=== PATIENT | male | born 1970 | race Caucasian/White ===

== ENCOUNTER 2016-06-05 07:33 | Emergency (ER) | payer SELFPAY ==
[2016-06-05 07:39] VITALS: BP 165/106
[2016-06-05] MEDS ORDERED: Tetan/Diph/Pertus SYR(Tdap)* 0.5 ML SYR(BOOSTRIX) use SYR IM ONE (08:18)
--- NOTE | 2016-06-05 09:29 | ED ---
Laceration/Wound HPI - HPI Summary HPI Summary: Patient arrives to ED after lacerating base of the thumb on the dorsum side approx 30 minutes ago with a table saw. Denies numbness or tingling. Pulses +2 bilaterally. Has not taken anything for pain. 2/10 pain noted. Denies health problems or any medications daily. - History of Current Complaint Stated Complaint: RT HAND LAC Time Seen by Provider: 06/05/16 07:50 Hx Obtained From: Patient Mechanism of Injury: Sharp/Blunt Trauma Onset/Duration: Sudden Onset Aggravating: Movement Alleviating: Compression Timing: Constant Onset Severity: Mild Current Severity: Mild Pain Intensity: 2 Pain Scale Used: 0-10 Numeric Associated Signs & Symptoms: Negative - Allergy/Home Medications Allergies/Adverse Reactions: Allergies Allergy/AdvReac Type Severity Reaction Status Date / Time Penicillins Allergy Itching Verified 06/05/16 07:35 PMH/Surg Hx/FS Hx/Imm Hx Previously Healthy: Yes Endocrine/Hematology History: Denies: Hx Diabetes, Hx Thyroid Disease Cardiovascular History: Reports: Hx Hypertension - ??? Respiratory History: Denies: Hx Asthma, Hx Chronic Obstructive Pulmonary Disease (COPD) GI History: Denies: Hx Ulcer - Surgical History Surgery Procedure, Year, and Place: back surgery Infectious Disease History: No Infectious Disease History: Denies: Hx Clostridium Difficile, Hx Hepatitis, Hx Human Immunodeficiency Virus (HIV), Hx of Known/Suspected MRSA, Hx Shingles, Hx Tuberculosis, Hx Known/ Suspected VRE, Hx Known/Suspected VRSA, History Other Infectious Disease, Traveled Outside the [place] in Last 30 Days - Social History Occupation: Employed Full-time Lives: With Family Alcohol Use: Rare Hx Substance Use: No Substance Use Type: Reports: None Hx Tobacco Use: Yes Smoking Status (MU): Heavy Every Day Tobacco Smoker Type: Cigarettes Review of Systems Constitutional: Negative Cardiovascular: Negative Respiratory: Negative Positive: no symptoms reported, see HPI Musculoskeletal: Negative Positive: Other - 2cm laceration Neurological: Negative Psychological: Normal All Other Systems Reviewed And Are Negative: Yes Physical Exam Triage Information Reviewed: Yes Vital Signs On Initial Exam: Initial Vitals Temp Pulse Resp BP Pulse Ox 97 F 110 20 165/106 98 06/05/16 07:35 06/05/16 07:35 06/05/16 07:35 06/05/16 07:35 06/05/16 07:35 Vital Signs Reviewed: Yes Appearance: Positive: Well-Appearing, Well-Nourished Skin: Positive: Warm, Other - 1.5cm laceration to dorsum of base of thumb. superifical. no depth or width. pulses intact bilaterally. movement in all directions OK. no erythema, warmth or drainage from the area. Head/Face: Positive: Normal Head/Face Inspection Eyes: Positive: SUNSHINE, Conjunctiva Clear Neck: Positive: Supple, No Lymphadenopathy Respiratory/Lung Sounds: Positive: Clear to Auscultation Cardiovascular: Positive: Normal Musculoskeletal: Positive: Normal, Other Neurological: Positive: Other - denies numbness and tingling Psychiatric: Positive: Normal AVPU Assessment: Alert Procedures - Laceration/Wound Repair 1 Location: upper extremity Description: Linear Anesthesia: Local, 1.0% Betadine Prep?: No Laceration/Wound Explored: clean Suture Type: Nylon Number of Sutures: 3 - denies numbness and tingling s/p sutures Layer Closure?: No Sterile Dressing Applied?: No Diagnostics - Vital Signs Vital Signs Temp Pulse Resp BP Pulse Ox 06/05/16 07:35 97 F 110 20 165/106 98 - Laboratory Lab Statement: Any lab studies that have been ordered have been reviewed, and results considered in the medical decision making process. Laceration Repair Course/Dx - Course Course Of Treatment: Laceration to dorsum of base of right thumb. Patient is right hand dominant. irrigated wound. 3 nylon sutures placed. abx ointment applied. gauze wrapped. neurovascular exam s/p suture placement intact. no abx needed. patient tolerated well. appears well on discharge. will follow up with pcp regarding elevated BP. suture removal in 5-7 days - Differential Dx Differental Diagnoses: Abrasion, Cellulitis, Dehiscence, Laceration - Clinical Impression Provider Diagnoses: Laceration of thumb, right Discharge - Discharge Plan Condition: Stable Disposition: HOME Patient Education Materials: Care For Your Stitches (ED) Referrals: No Primary Care Phys,NOPCP [Primary Care Provider] - Additional Instructions: Suture removal in 5-7 days. If you develop any warmth, redness, drainage from the area or develop a fever, please come back to the ED. Tetanus updated. Images - Images Hands: 1 - 1.5 length laceration.
== END 2016-06-05 09:58 | disposition home or self-care (01) ==
LOC: ED 07:33
DX: S61.011A Laceration without foreign body of right thumb without damage to nail, initial encounter (principal); W27.8XXA Contact with other nonpowered hand tool, initial encounter; Y93.9 Activity, unspecified; Y92.9 Unspecified place or not applicable; F17.210 Nicotine dependence, cigarettes, uncomplicated
CPT/HCPCS: 90471; 90715; 99282